=== PATIENT | male | born 1970 | race Caucasian/White ===

== ENCOUNTER 2016-07-17 08:44 | Emergency (ER) | payer MEDICARE ==
[~2016-07-17 08:44] MED LIST: ADVIL200 MG PO; HYDROCODONE-APA1 TAB PO; PERCOCET 10/3251 TA1 PO
== END 2016-07-17 11:24 | disposition home or self-care (01) ==
LOC: D.ER 08:44
DX: M62.838 Other muscle spasm (principal)

== ENCOUNTER 2016-10-26 10:56 | Emergency (ER) | payer MEDICARE | END 2016-10-26 12:51 | disposition home or self-care (01) | LOC: D.ER 10:56 | DX: M54.5 Low back pain (principal) ==

== ENCOUNTER 2016-11-04 10:02 | Emergency (ER) | payer MEDICARE | END 2016-11-04 11:34 | disposition home or self-care (01) | LOC: D.ER 10:02 | DX: M54.5 Low back pain (principal); M62.838 Other muscle spasm; M54.30 Sciatica, unspecified side; F17.200 Nicotine dependence, unspecified, uncomplicated ==

== ENCOUNTER 2016-12-21 09:52 | Emergency (ER) | payer MEDICARE | END 2016-12-21 11:06 | LOC: D.ER 09:52 | DX: M54.16 Radiculopathy, lumbar region (principal); F17.200 Nicotine dependence, unspecified, uncomplicated ==

== ENCOUNTER 2016-12-31 15:08 | Emergency (ER) | payer MEDICARE | END 2016-12-31 16:52 | disposition home or self-care (01) | LOC: D.ER 15:08 | DX: M54.5 Low back pain (principal) ==

== ENCOUNTER 2017-01-15 15:14 | Emergency (ER) | payer MEDICARE | END 2017-01-15 17:10 | disposition home or self-care (01) | LOC: D.ER 15:14 | DX: M54.5 Low back pain (principal); S39.012A Strain of muscle, fascia and tendon of lower back, initial encounter; X58.XXXA Exposure to other specified factors, initial encounter; Y93.89 Activity, other specified; Y92.029 Unspecified place in mobile home as the place of occurrence of the external cause ==

== ENCOUNTER 2017-01-25 10:11 | Emergency (ER) | payer MEDICARE | END 2017-01-25 11:53 | disposition home or self-care (01) | LOC: D.ER 10:11 | DX: M51.26 Other intervertebral disc displacement, lumbar region (principal) ==

== ENCOUNTER 2017-02-02 14:57 | Emergency (ER) | payer MEDICARE | END 2017-02-02 19:15 | disposition home or self-care (01) | LOC: D.ER 14:57 | DX: M54.5 Low back pain (principal) ==

== ENCOUNTER 2017-02-22 11:53 | Emergency (ER) | payer MEDICARE | END 2017-02-22 12:40 | disposition home or self-care (01) | LOC: D.ER 11:53 | DX: M54.5 Low back pain (principal) ==

== ENCOUNTER 2017-07-07 17:20 | Emergency (ER) | payer MEDICARE | END 2017-07-07 20:24 | disposition home or self-care (01) | LOC: D.ER 17:20 | DX: M25.561 Pain in right knee (principal); M25.461 Effusion, right knee; M54.5 Low back pain; W19.XXXA Unspecified fall, initial encounter; Y93.89 Activity, other specified; Y92.019 Unspecified place in single-family (private) house as the place of occurrence of the external cause; F17.200 Nicotine dependence, unspecified, uncomplicated ==

== ENCOUNTER 2017-07-21 11:19 | Emergency (ER) | payer MEDICARE | END 2017-07-21 13:50 | disposition home or self-care (01) | LOC: D.ER 11:19 | DX: M25.521 Pain in right elbow (principal) ==

== ENCOUNTER 2017-10-19 20:00 | Emergency (ER) | payer MEDICARE ==
[~2017-10-19] VITALS: Ht 180.3 cm; Wt 88.6 kg
[2017-10-19 20:28] VITALS: Ht 180.3 cm; Wt 88.6 kg
[2017-10-19] MEDS ORDERED: CYCLOBENZAPRINE10 MG PO (21:26)
[2017-10-19] MEDS ORDERED: ULTRAM50 MG PO (21:26)
[2017-10-19 21:55] VITALS: BP 146/79
== END 2017-10-19 21:54 | disposition home or self-care (01) ==
LOC: D.ER 20:00
DX: M54.5 Low back pain (principal); F17.200 Nicotine dependence, unspecified, uncomplicated

== ENCOUNTER 2018-02-05 21:44 | Emergency (ER) | payer MEDICARE ==
[~2018-02-05] VITALS: Ht 180.3 cm; Wt 81.8 kg
[~2018-02-05 21:44] MED LIST changes: +CYCLOBENZAPRINE10 MG PO; +ULTRAM50 MG PO
[2018-02-05 21:46] VITALS: Ht 180.3 cm; Wt 81.8 kg
[2018-02-05] MEDS ORDERED: BACLOFEN20 M1 PO (22:11)
[2018-02-05] MEDS ORDERED: VOLTAREN75 MG PO (22:11)
[2018-02-05 22:53] VITALS: BP 134/80
== END 2018-02-05 22:45 | disposition home or self-care (01) ==
LOC: D.ER 21:44
DX: M54.5 Low back pain (principal); G89.29 Other chronic pain; F17.200 Nicotine dependence, unspecified, uncomplicated

== ENCOUNTER 2018-05-14 16:31 | Emergency (ER) | payer MEDICARE ==
[~2018-05-14] VITALS: Ht 180.3 cm; Wt 88.6 kg
[~2018-05-14 16:31] MED LIST changes: +BACLOFEN20 M1 PO; +VOLTAREN75 MG PO
[2018-05-14 16:49] VITALS: Ht 180.3 cm; Wt 88.6 kg
[2018-05-14] MEDS ORDERED: CYCLOBENZAPRINE10 MG PO (17:17)
[2018-05-14] MEDS ORDERED: ULTRAM50 MG PO (17:17)
[2018-05-14 17:39] VITALS: BP 142/86
== END 2018-05-14 17:40 | disposition home or self-care (01) ==
LOC: D.ER 16:31
DX: M54.5 Low back pain (principal); M62.830 Muscle spasm of back

== ENCOUNTER → 2018-06-24 09:54 | Outpatient (CLI) | payer MEDICARE ==
[2018-05-14 16:49] VITALS: BMI 27.2
== END | disposition home or self-care (01) ==
LOC: D.MRI 09:54
PROVIDERS: ATTEND Orthopaedic Surgery
DX: M54.12 Radiculopathy, cervical region (principal)

== ENCOUNTER → 2018-07-19 09:55 | Outpatient (CLI) | payer MEDICARE ==
[2018-05-14 16:49] VITALS: BMI 27.2
== END | disposition home or self-care (01) ==
LOC: D.MRI 09:55
PROVIDERS: ATTEND Orthopaedic Surgery
DX: S83.241D Other tear of medial meniscus, current injury, right knee, subsequent encounter (principal)

== ENCOUNTER 2018-07-29 08:55 | Day surgery (SDC) | payer MEDICARE ==
[~2018-07-29] VITALS: Ht 180.3 cm; Wt 86.2 kg
[~2018-07-29 08:55] MED LIST changes: +HYDROCODON-ACE1 EAC7 PO
[2018-07-29 09:40] VITALS: BP 116/78; Ht 180.3 cm; Wt 86.2 kg
[2018-07-29] MEDS ORDERED: VISTARIL50 MG PO (13:42)
[2018-07-29] MEDS ORDERED: PERCOCET 10-321 EAC1 PO (13:42)
[2018-07-29] MEDS ORDERED: TORADOL10 MG PO (13:43)
--- NOTE | 2018-07-29 14:49 | NUR ---
1430-RECD TO ROOM FROM PACU. ALERT. IV PATENT. RESP WITH EASE. R KNEE DRESSING DRY AND INTACT, ELEVATED WITH ICE PACK.
--- NOTE | 2018-07-29 20:49 | OP ---
PATIENT NAME: DIANDRA GILES JR MEDICAL RECORD: [id number] :70 LOCATION:[facility] ADMISSION DATE: SURGEON: STANISLAV FORDE DO DATE OF OPERATION: 07/29/2018 PROCEDURE PERFORMED: Right knee arthroscopy with partial medial meniscectomy. PREOPERATIVE DIAGNOSIS: Right knee medial meniscal tear. POSTOPERATIVE DIAGNOSIS: Right knee medial meniscal tear. INDICATIONS: Mr. Giles is a 47-year-old male who presented to my office with right knee pain, catching and popping. He was tired and down with the pain and wants something done. MRI was done and showed a medial meniscal tear in the posterior third of the medial meniscus. He had a medial meniscal tear in the past. He said he was tired down with it and was aware of the risks including infection, bleeding, damage to nerve or vessels, need for further surgery, advancing arthritis in his knee and he signed the consent. SURGEON: Stanislav Forde DO DESCRIPTION OF PROCEDURE: The patient went to the operative suite, laid in supine position. The right lower extremity was prepped and draped in sterile fashion, given 2 grams Ancef preoperatively. A timeout was performed and everyone was agreeance with the correct side, site, patient and procedure. He was then sedated and LMA was placed. The procedure began with the knee flexed down and the medial and lateral portals were injected with 0.25% Marcaine with epinephrine, 1.5 mL in each side and a 11 blade scalpel was used to establish lateral portal. Trocar was entered in the knee, suprapatellar pouch inspected. No loose body was seen at the lateral gutter or the medial gutter. Knee was then brought from extension to flexion and the medial portal was established with an 18-gauge spinal needle an 11-blade scalpel. Probe was brought in for the medial meniscus, there is a horizontal split tear in the mid substance of the posterior middle of the medial meniscus, split right half. The meniscus was trimmed back to a stable point and then the biters and then a shaver was brought in to clean it all back to a stable point. It was probed and seen to be stable. The ACL was then inspected and probed as well as the cartilage on the medial and lateral femoral condyles and the medial tibial plateau and lateral tibial plateau was in good shape. The mid knee was in [id number]-[id number]'ed and the lateral meniscus was probed does not seem to have any tears. The patella was then viewed with the knee in flexion, tracked well in the trochlea. The water was turned off, suction was turned on. The scope was removed and the portal sites closed with 4-0 Monocryl in inverted interrupted fashion. Steri-Strips, Adaptic, 4 x 4's, ABD, Webril, Octavio wrap were then placed on the knee. ESTER hose stockinette was placed up to the knee. The patient was awakened and taken to recovery in stable condition. BLOOD LOSS: Minimal. COMPLICATIONS: None. TRANSINT:[id number] Voice Confirmation ID: [id number] DOCUMENT ID: [id number] OPERATIVE REPORT [id number] DIANDRA GILES MICHAEL D, DO at 2049 CC: [id number] DICTATION DATE: 07/29/18 1348 TANK PUMPER: 07/29/18 1855 [facility] 07/29/18 [facility] [address] [place] [address]
== END 2018-07-29 15:50 | disposition home or self-care (01) ==
LOC: D.OPS 08:55 → D.PAN 12:00 → D.OPS 12:00
PROVIDERS: ATTEND Orthopaedic Surgery
DX: S83.206A Unspecified tear of unspecified meniscus, current injury, right knee, initial encounter (principal); X58.XXXA Exposure to other specified factors, initial encounter

== ENCOUNTER 2018-08-29 17:17 | Emergency (ER) | payer MEDICARE ==
[~2018-08-29] VITALS: Ht 180.3 cm; Wt 88.6 kg
[~2018-08-29 17:17] MED LIST changes: +PERCOCET 10-321 EAC1 PO; +TORADOL10 MG PO; +VISTARIL50 MG PO
[2018-08-29 17:42] VITALS: Ht 180.3 cm; Wt 88.6 kg
[2018-08-29 20:01] VITALS: BP 120/81
== END 2018-08-29 20:02 | disposition home or self-care (01) ==
LOC: D.ER 17:17
DX: M25.561 Pain in right knee (principal)

== ENCOUNTER 2018-09-22 05:20 | Day surgery (SDC) | payer MEDICARE ==
[~2018-09-22] VITALS: Ht 180.3 cm; Wt 88.6 kg
[2018-09-22] VITALS (14 sets, daily range): BP systolic 114–144; BP diastolic 74–109; Ht 180.3 cm; Wt 88.6 kg
[2018-09-22] MEDS ORDERED: HYDROCODON-ACE1 EA10 PO (06:39)
--- NOTE | 2018-09-22 11:00 | NUR ---
RECEIVED PATIENT FROM RECOVERY. LEFT ANTERIOR NECK INCISION FROM [facility]. VSS. DROWSY BUT ORIENTED. GAVE ICE PACK. WILL CONTINUE TO MONITOR
--- NOTE | 2018-09-22 19:00 | NUR ---
ASSESSMENT COMPLETED PER FLOWSHEETS. PT A/O X4, ANTERIOR NECK INCISION INTACT, CLEAN AND DRY. SR ON CM. PT C/O NECK PAIN 4/10 ON SCALE. ICE PACK ENCOUREGED TO USE, PAIN MEDS WAS GIVEN 30MIN AGO. WILL REASSESS. CONT TO MONITOR,.
--- NOTE | 2018-09-22 20:10 | NUR ---
PT C/O THAT HAS CREIVINGS FOR SMOKING, MAKING HIM IRRITABLE AND ANXIOUS. DR REYEZ CALLED, ORDER REC'D FOR A NICOTINE PATCH.
--- NOTE | 2018-09-22 21:15 | NUR ---
PT REQUESTED TO STAND UP TO VOID. SOFT COLLAR APPLIED . PT ISAURO WELL. NO S/S OF DIZZINESS OR WEEKNESS NOTED. VSS. CONT TO MONITOR.
--- NOTE | 2018-09-22 23:00 | NUR ---
REASSESSMENT COMPLETED PER FLOWSHEETS. NO ACUTE CHANGES IN PT'S STATUS. VSS. CPOC.
[2018-09-23] VITALS (9 sets, daily range): BP systolic 113–146; BP diastolic 78–102
--- NOTE | 2018-09-23 01:10 | NUR ---
PT C/O PAIN 7/10 ON SCALE. MORPHINE 2MG IVP GIVEN PER ORDER. WILL REASSESS.
--- NOTE | 2018-09-23 01:30 | NUR ---
PT SLEEPING [facility] DISTRESS. VSS
--- NOTE | 2018-09-23 03:00 | NUR ---
REASSESSMENT COMPLETED PER FLOWSHEETS. NO ACUTE CHAGES NOTED ON PT'S STATUS. VSS
--- NOTE | 2018-09-23 08:09 | NUR ---
THE PATIENT WAS LYING IN BED AND WATCHING TELEVISION WHEN STAFF ENTERED HIS ROOM. BE DIS IN THE LOW POSITION WITH SIDERAILS X2 AND CALL LIGHT WITHIN REACH. THE PATIENT WAS EDUCATED ON THE USE OF A CALL LIGHT AND DEMONSTRATES UNDERSTANDING VIA TEACHBACK METHOD. THE PATIENT APPEARS COMFORTABLE AND HAS NO QUESTIONS OR CONCERNS AT THIS TIME.
--- NOTE | 2018-09-23 11:28 | NUR ---
THE PATIENT REMAINS IN BED WATCHING TELEVISION WITH BED IS LOW POSITION, SIDERAILS X2, AND CALL LIGHT WITHIN REACH. THE PATIENT HAS NO QUESTIONS OR CONCERNS AT THIS TIME.
--- NOTE | 2018-09-23 14:41 | NUR ---
PT DISCHARGE TEACHING PROVIDED BY PRIMARY NURSE. WRITTEN PRESCRIPTIONS PROVIDED. TRANSPORTED VIA WHEELCHAIR
--- NOTE | 2018-09-29 13:38 | OP ---
PATIENT NAME: DIANDRA JARAMILLO JR MEDICAL RECORD: [id number] :70 LOCATION:[facility] ADMISSION DATE: SURGEON: REJI COSTELLO MD DATE OF OPERATION: 09/22/2018 DATE OF SERVICE: 09/22/2018 PREOPERATIVE DIAGNOSES: Osteophyte formation and disc herniation at C5-C6 and C6-7. POSTOPERATIVE DIAGNOSES: Osteophyte formation and disc herniation at C5-C6 and C6-C7 with cervical radiculopathy. PROCEDURE: Anterior cervical discectomy and fusion at C5-C6 and C6-C7 with separate anterior cervical plate and screws, PEEK interbody cages, bone stem cell allograft at C5-C6 and C6-C7. SURGEON: Reji Costello MD DESCRIPTION AND TECHNIQUE: After induction of general endotracheal anesthesia, the patient was positioned supine on the operating table. Neck was prepped and draped in the usual sterile fashion. Fluoroscopic x-ray and Fairview dissector localized with the C5-C6 interspace. Following this, a 1:100,000 epinephrine and 1% lidocaine was infiltrated into the subcutaneous tissues. A transverse skin incision was carried out from the midline to the sternocleidomastoid muscle. The platysma was divided with sharp dissection with #15-blade. A pair of Metzenbaum scissors was used for blunt and sharp dissection medial to the carotid sheath. Following this, the C5-C6 and C6-C7 interspaces were identified with fluoroscopic x-ray and a spinal needle. The longus colli muscles were elevated from bodies of C5, C6 and C7. Osteophytes were removed anteriorly with Adson rongeurs. A self-retaining retractor was placed deep to the longus colli muscles. Douglas distracting pins were placed by the C5, C6, and C7. Each disc space was incised under distraction. The disc material was removed with curettes and pituitary rongeurs at C5-C6 and C6-C7. Under microscopic illumination, osteophytes were drilled away posteriorly. The posterior longitudinal ligament was removed with Cloward rongeurs. Next, PEEK interbody cages were placed in the disc space under distraction. Prior to this, they were filled with Negin bone stem cell allograft. A Zavation anterior cervical plate and screws was used to span the C5-C6 and C6-C7 interspaces. This was a separate plate and screws. Self-drilling screws were placed through the holes in the plate. Locking cams were tightened down over the screw heads. Meticulous hemostasis was maintained throughout the wound. Wound was irrigated with copious amounts of Ancef irrigant solution. The platysma and subdermal layer closed with interrupted 3-0 Vicryl suture. The skin was reapproximated with Steri-Strips and benzoin. A sterile dressing was applied to the wound. The patient was awakened in good condition and taken to recovery. All counts were reported as correct. Estimated blood loss was minimal. TRANSINT:[id number] Voice Confirmation ID: [id number] DOCUMENT ID: [id number] OPERATIVE REPORT [id number] DIANDRA JARAMILLO JOHN MD at 1338 CC: [id number] DICTATION DATE: 09/28/18917 PRECIPITATOR: 09/28/18 0953 [facility] 09/23/[address] [address]
== END 2018-09-23 14:43 | disposition home or self-care (01) ==
LOC: D.ICU 05:20 → D.OPS 05:20 → D.PAN 07:30 → D.ICU 10:38 → D.OPS 09-23 14:43
PROVIDERS: ATTEND Neurological Surgery
DX: M50.122 Cervical disc disorder at C5-C6 level with radiculopathy (principal); M25.78 Osteophyte, vertebrae; Z01.812 Encounter for preprocedural laboratory examination

== ENCOUNTER → 2018-11-10 14:15 | Outpatient (CLI) | payer MEDICARE ==
[2018-09-22 11:12] VITALS: BMI 27.2
[~2018-11-10 14:15] MED LIST changes: +HYDROCODON-ACE1 EA10 PO
== END | disposition home or self-care (01) ==
LOC: D.MRI 14:15
PROVIDERS: ATTEND Orthopaedic Surgery
DX: M23.303 Other meniscus derangements, unspecified medial meniscus, right knee (principal)

== ENCOUNTER → 2018-12-05 10:00 | Outpatient (CLI) | payer MEDICARE ==
[2018-09-22 11:12] VITALS: BMI 27.2
[~2018-12-05 10:00] MED LIST changes: +OXYCODONE HCL5 M1 PO
== END | disposition home or self-care (01) ==
LOC: D.MRI 10:00
PROVIDERS: ATTEND Family Medicine
DX: M54.12 Radiculopathy, cervical region (principal)

== ENCOUNTER 2018-12-23 05:15 | Day surgery (SDC) | payer MEDICARE ==
[~2018-12-23] VITALS: Ht 180.3 cm; Wt 86.2 kg
[~2018-12-23 05:15] MED LIST changes: -OXYCODONE HCL5 M1 PO
[2018-12-23 06:03] VITALS: BP 153/93; Ht 180.3 cm; Wt 86.2 kg
[2018-12-23] MEDS ORDERED: OXYCODONE HCL5 M1 PO (07:48)
--- NOTE | 2018-12-23 11:48 | OP ---
PATIENT NAME: DIANDRA JARAMILLO JR MEDICAL RECORD: [id number] :70 LOCATION:[facility] ADMISSION DATE: SURGEON: STANISLAV FORDE DO DATE OF OPERATION: 12/23/2018 PROCEDURE PERFORMED: Right knee arthroscopy with partial medial meniscectomy. PREOPERATIVE DIAGNOSIS: Right knee medial meniscal tear. POSTOPERATIVE DIAGNOSIS: Right knee medial meniscal tear. INDICATIONS: Mr. Mast is a 48-year-old male who has had right knee pain. He had a partial medial meniscectomy done several months ago, but appeared to have reinjured it. An MRI was done, showed he had continued pain and showed a midsubstance tear of the posterior horn of the medial meniscus. He had medial joint line tenderness and with positive Jayna. I told him that due to his age, he is 48, and that we can go in and trim that out and that he would be at high risk for advancing osteoarthritis, especially in the medial compartment and he was also aware of the risks of infection, bleeding, damage to nerves and vessels, need for further surgery, recurrence of the tear and blood clots and even . He signed the consent. SURGEON: Stanislav Forde DO INSTRUCTIONAL SUPERVISOR: Leroy Salgado, certified surgical school psychologist assistant. He performed closing and injecting 0.5% Marcaine with epinephrine in the portal sites at the end of the procedure. DESCRIPTION OF PROCEDURE: The patient was taken to the operative suite, laid in supine position, given general anesthetic and LMA was placed. He was given 2 grams of Ancef. The right lower extremity was then prepped and draped in sterile fashion. A timeout was performed and everyone was in agreement with the correct side, site, patient and procedure. We then began the incision over the lateral aspect of the knee for the portal with an 11-blade scalpel. The trocar then entered the knee. The suprapatellar pouch was inspected. No loose body was seen in it. The same was the medial and lateral gutters. Once the medial gutter was entered, the knee was flexed down. The medial compartment was entered. The medial portal was then established with an 18-gauge spinal needle and 11-blade scalpel. A probe was brought in seeing it was almost an oblique tear in the mid substance of the posterior horn of the medial meniscus closer to the medial about the junction of the medial and posterior horns. This was bit out with a biter and shaver back to a stable point. There was no extending of the tear at that point. This was probed again and ensured that there was no further tearing. I then inspected the ACL with the probe in good position and the lateral aspect of the knee as well, lateral compartment as the knee was figure-foured. No tear was seen in the meniscus. The cartilage was in good condition. There was no chondromalacia noted, possible grade II in the medial femoral condyle, but nothing more severe than that. The trochlea looked to be in good shape as well, as well as the underneath surface of the patella. The suction was then turned on. Water was turned off and the excess fluid was taken out of the knee. The portal sites were then closed with 4-0 Monocryl after being injected with 5 mL of 0.5% Marcaine with epinephrine, 4-0 Monocryl in inverted interrupted fashion is how they were closed with Steri-Strips, Adaptic, 4 x 4's, ABD, Webril, Octavio wrap and ESTER hose stockinette placed up to the knee. The patient was then awakened and taken to recovery in stable condition. OPERATIVE REPORT [id number] DIANDRA JARAMILLO BLOOD LOSS: Minimal. COMPLICATIONS: None. TRANSINT:[id number] Voice Confirmation ID: [id number] DOCUMENT ID: [id number] STANISLAV FORDE DO at 1148 CC: [id number] DICTATION DATE: 12/23/18 0858 MULCHER OPERATOR: 12/23/18 1109 [facility] 12/23/[address] [address]
== END 2018-12-23 10:57 | disposition home or self-care (01) ==
LOC: D.OPS 05:15 → D.PAN 12:00
PROVIDERS: ATTEND Orthopaedic Surgery
DX: S83.241A Other tear of medial meniscus, current injury, right knee, initial encounter (principal); X58.XXXA Exposure to other specified factors, initial encounter

== ENCOUNTER → 2019-09-25 21:37 | Outpatient (CLI) | payer MEDICARE ==
[2018-12-23 06:03] VITALS: BMI 26.5
[~2019-09-25 21:37] MED LIST changes: +OXYCODONE HCL5 M1 PO
== END | disposition home or self-care (01) ==
LOC: D.LABREF 21:37
PROVIDERS: ATTEND Orthopaedic Surgery
DX: M17.11 Unilateral primary osteoarthritis, right knee (principal)

== ENCOUNTER 2019-09-26 12:40 | Inpatient (IN) | payer MEDICARE ==
[~2019-09-26] VITALS: Ht 180.3 cm; Wt 86.2 kg
[2019-10-18 08:48] LABS: BILIRUBIN NEGATIVE (NEGATIVE); HEMATOCRIT 45.2 % (42.0-54.0); HEMOGLOBIN 14.7 g/dL (13.5-17.5); KETONE NEGATIVE (NEGATIVE); MCH 30.6 pg (26.0-34.0); MCHC 32.5 g/dL (31.0-37.0); MCV 94.2 fL (80.0-100.0); MEAN PLATELET VOLUME 8.9 fL (7.4-10.4); NITRITE NEGATIVE (NEGATIVE); PLATELET COUNT 283 10x3/uL (130-400); RDW 13.7 % (11.5-14.5); UROBILINOGEN NORMAL (NORMAL); WBC 5.6 10x3/uL (4.8-10.8)
[2019-10-18 08:57] LABS: CALC OSMOLALITY 273 mosm/kg (275-300); CALCIUM 9.1 mg/dL (8.5-10.1); CARBON DIOXIDE 29.5 mmol/L (21.0-32.0); CHLORIDE - SERUM 101 mmol/L (98-107); CREATININE - SERUM 1.1 mg/dL (0.6-1.3); GLUCOSE 92 mg/dL (74-106); POTASSIUM - SERUM 3.8 mmol/L (3.5-5.1); SODIUM 137 mmol/L (136-145); UREA NITROGEN 13 mg/dL (7-18); eGFR NON AFRICAN AMERICAN 75 mL/min (90-120)
[2019-10-18 09:03] LABS: APTT 30.4 SECONDS (22.8-39.4); INR 0.88 (0.85-1.17)
[2019-10-18 09:17] LABS: EOSINOPHILS 2 % (0-7); LYMPHOCYTES 57 % (15-50); MONOCYTES 5 % (2-11); NEUTROPHILS 36 % (40-80); PLATELET ESTIMATE NORMAL
[2019-10-24] VITALS (10 sets, daily range): BP systolic 121–144; BP diastolic 76–97; BMI 26.5
--- NOTE | 2019-10-24 11:42 | NUR ---
1130-monitors established. block per anesthesia. O2 sat and etco2 monitors continue.
--- NOTE | 2019-10-24 12:51 | NUR ---
CAUTERY PAD PLACED ON LEFT THIGH. LOT#[id number] EXP. 06/13/2021. PLASMA BLADE ON SETTING 6/8. AQUAMANIS SETTING ON 170.
--- NOTE | 2019-10-24 16:25 | NUR ---
MOTHER ELANA IN ROOM. PT PAIN LEVEL STILL A 10 OUT OF 10 ON THE PAIN SCALE. UNDERSTANDS I CAN GIVE HIM NO FURTHER PAIN MEDICATION AT THIS TIME. CL IN REACH. NO FURTHER NEEDS AT THIS TIME. WCTM
--- NOTE | 2019-10-24 17:22 | MORECARE ---
CASE MANAGEMENT DISCHARGE SUMMARY PATIENT: DIANDRA JARAMILLO JR UNIT: [id number] ADM DATE: 10/24/19 AGE: 49 : 70 SEX: M ROOM/BED: D.1208 AUTHOR: BILLIE ESPINOZA PHYSICIAN: REFERRING PHYSICIAN: MARIE FORDE DO DATE OF SERVICE: 10/24/19 Discharge Plan Patient Name: DIANDRA JARAMILLO Facility: [facility]:[place] : 1970 Planned Disposition: Anticipated Discharge Date: Discharge Date: Expected LOS: Initial Reviewer: [email or web address] Initial Review Date: 10/24/2019 Generated: 10/24/19 6:22 pm Patient Name: DIANDRA JARAMILLO Page [id number] at 1722 All edits/amendments must be made on the electronic document DICTATION DATE: 10/24/191721 REFINISH TECHNICIAN: LIZANDRO 10/24/191721 RPT#: [id number] DC DATE: STATUS: ADM IN [facility] [address] [place] [address] END OF REPORT
--- NOTE | 2019-10-24 17:56 | MORECARE ---
CASE MANAGEMENT DISCHARGE SUMMARY PATIENT: DIANDRA JARAMILLO JR UNIT: [id number] ADM DATE: 10/24/19 AGE: 49 : 70 SEX: M ROOM/BED: D.1208 AUTHOR: BILLIE ESPINOZA PHYSICIAN: REFERRING PHYSICIAN: MARIE FORDE DO DATE OF SERVICE: 10/24/19 Discharge Plan Patient Name: DIANDRA JARAMILLO Facility: [facility]:[place] : 1970 Planned Disposition: Anticipated Discharge Date: Discharge Date: Expected LOS: Initial Reviewer: [email or web address] Initial Review Date: 10/24/2019 Generated: 10/24/19 6:55 pm DCP- Discharge Planning Updated by [email or web address]: Dot Fuller on 10/24/19 4:[address] DME has not been delivered as yet. Patient will need CPM, RW, Ice Therapy. CM met with patient regarding DC needs/plans. Patient is in agreement to same, but somewhat drowsy. PCP: Dr. Owens. [facility] DME: cane, shower bench. Emergency contact: Thelma Epi [phone]. CM discussed HHS, OP Therapy, Rehab, SNF. Patient is too drowsy (recent pain medication) and CM will visit again. Last DP export: 10/24/19 4:22 pm Patient Name: DIANDRA JARAMILLO Page [id number] at 1756 All edits/amendments must be made on the electronic document DICTATION DATE: 10/24/191754 PROSTHETIC DENTIST: LIZANDRO 10/24/191754 RPT#: [id number] DC DATE: STATUS: ADM IN [facility] [address] [place] [address] END OF REPORT
--- NOTE | 2019-10-24 20:00 | NUR ---
ALERT RESTING IN BED CPM IN PLACE, REPORTS PAIN TO RIGHT KNEE 7, INSTRUCTED WILL GIVE PAIN MEDS AGAIN SOON POSSIABLE, SEE SHIFT ASSESSMENT, CALL LIGHT IN REACH
[2019-10-25 00:54] VITALS: BP 115/74
[2019-10-25 06:09] VITALS: BP 114/74
[2019-10-25 06:32] LABS: BASOPHILS 0.1 % (0-2); EOSINOPHILS 0.2 % (0-7); HEMATOCRIT 38.2 % (42.0-54.0); HEMOGLOBIN 12.5 g/dL (13.5-17.5); IMMATURE GRANULOCYTES 0.3 % (0-5); LYMPHOCYTES 24.5 % (15-50); MCH 30.4 pg (26.0-34.0); MCHC 32.7 g/dL (31.0-37.0); MCV 92.9 fL (80.0-100.0); MEAN PLATELET VOLUME 8.8 fL (7.4-10.4); MONOCYTES 5.8 % (2-11); NEUTROPHILS 69.1 % (40-80); PLATELET COUNT 271 10x3/uL (130-400); RBC 4.11 10x6/uL (4.20-6.10); RDW 13.8 % (11.5-14.5); WBC 9.7 10x3/uL (4.8-10.8)
[2019-10-25 07:52] LABS: CALC OSMOLALITY 268 mosm/kg (275-300); CALCIUM 7.8 mg/dL (8.5-10.1); CARBON DIOXIDE 25.3 mmol/L (21.0-32.0); CHLORIDE - SERUM 97 mmol/L (98-107); CREATININE - SERUM 1.1 mg/dL (0.6-1.3); GLUCOSE 117 mg/dL (74-106); POTASSIUM - SERUM 3.7 mmol/L (3.5-5.1); SODIUM 134 mmol/L (136-145); UREA NITROGEN 12 mg/dL (7-18); eGFR NON AFRICAN AMERICAN 75 mL/min (90-120)
--- NOTE | 2019-10-25 07:59 | OP ---
PATIENT NAME: DIANDRA GILES JR MEDICAL RECORD: [id number] :70 LOCATION:D.M3 D.1208 ADMISSION DATE:10/24/19 SURGEON: STANISLAV FORDE DO DATE OF OPERATION: 10/24/2019 PROCEDURE PERFORMED: Right total knee arthroplasty. PREOPERATIVE DIAGNOSIS: Right knee osteoarthritis. POSTOPERATIVE DIAGNOSIS: Right knee osteoarthritis. INDICATIONS: Mr. Giles is a 49-year-old male, well known to me, who has had 2 medial partial meniscectomies through knee scope. He did have some grade III chondromalacia on the scope. He said he has never gotten pain relief since and he feels that his knee has gotten worse so it is affecting his activities of daily living and he is tired of dealing with it and wants something done surgically. I informed him that he is really young for a total knee but he persisted and insisted that he have a total knee and that it would help him to be able to play with his child and function normally. I informed him of the risks of that including infection, bleeding, damage to nerves or vessels, need for further surgery especially due to his young age, blood clots, failure of implants and even . He signed the consent. SURGEON: Stanislav Forde DO DESCRIPTION OF PROCEDURE: The patient was taken to the operative suite. After given a block by anesthesia in the preoperative area, laid in the supine position, given general anesthetic and LMA was placed. The patient was given 2 grams Ancef, 80 mg of gentamicin preoperatively and a gram of TXA. The right lower extremity was then prepped and draped in sterile fashion. A timeout was performed and everyone was in agreement with correct side, site and procedure. I then began by marking out the incision in the anterior knee, covered in Ioban. I made an incision down to the capsule. I used a fresh 10 blade to do a medial parapatellar approach. I then removed part of the fat pad, then milled down the patella and then exposed the femur and drilled into the intramedullary canal and cut the distal femur after the intramedullary guide. I then exposed the proximal tibia and cut it off a guide and removed the menisci, put the 10 extension block, it fit well and flexed at the knee and sized the femur to be 70. I used the 4-in-1 cutting block at that time to cut the femur, put the trial implant on and then put in a tibia with a 10 poly, I floated into place and ranged and marked the rotation. Then I removed that. The patella was drilled as well as the leg holes on the femur and then exposed the tibia and reamed and punched and put extra holes in the tibia first and then preparation and then cement was mixed. I then put in the tibia and on the implant, impacted it in place, removed the excess cement, impacted on the femur, put a 10 poly between and brought the knee to extension, we irrigated off the patella, put in cement on the patella and the holes and then on the implant and screws, did not remove the excess cement. We put a 10% povidone iodine with 500 mL normal saline solution in the knee and let it sit for 3 minutes while the cement dried, then irrigated that out with 2 liter of normal saline. We then trialed the 10, fit very well and had good medial and lateral stability in flexion and extension and put in a 10 poly and locked it into place. I then put in Shala and vancomycin and tobramycin powder after irrigating one more time and then closed the capsule with #1 Pops in a [id number] fashion. This is done by myself, Naima Alvarado and Cornell Mcnamara. Cornell is a certified surgical student and OPERATIVE REPORT [id number] DIANDRA GILES was certified surgical tech. We then closed the skin with 2-0 Vicryl in inverted fashion and put a Zip line on the knee, dressed with Adaptic, 4 x 4s, ABD, Webril, Octavio wrap, ESTER stocking for the knee. He was then awakened and taken to recovery in stable condition. Blood loss approximately 250 mL. COMPLICATIONS: None. TRANSINT:[id number] Voice Confirmation ID: [id number] DOCUMENT ID: [id number] STANISLAV FORDE DO at 0759 CC: [id number] DICTATION DATE: 10/24/19 1343 TEST EXAMINER: 10/24/19 5841 ADM IN [facility] [address] [place] [id number]
[2019-10-25 08:16] VITALS: BP 133/68
[2019-10-25 11:47] VITALS: BP 120/75
[2019-10-25 13:20] VITALS: Ht 180.3 cm; Wt 86.2 kg
[2019-10-25 15:36] VITALS: BP 144/87
--- NOTE | 2019-10-25 18:15 | NUR ---
PATIENT RECIEVED PAIN MEDS AND CPM PLACED. IV INTACT. NO COMPLAINTS AT THIS TIME CALL LIGHT WITHIN REACH.
--- NOTE | 2019-10-25 19:15 | NUR ---
ALERT RESTING IN BED WITH CPM IN USE, C/O PAIN TO RIGHT KNEE, WANTING CPM REMOVED STATES I JUST CANT TAKE IT ANYMORE, CPM REMOVED AT THIS TIME, WILL GIVE TORDOL FOR PAIN NOT RELIEVED BY OXYCODONE, SEE SHIFT ASSESSMENT, CALL LIGHT IN REACH
[2019-10-25 20:00] VITALS: BP 146/89
[2019-10-26 04:00] VITALS: BP 136/92
[2019-10-26 07:51] LABS: HEMATOCRIT 38.9 % (42.0-54.0); HEMOGLOBIN 12.8 g/dL (13.5-17.5); LYMPHOCYTES 27.3 % (15-50); MCH 30.4 pg (26.0-34.0); MCHC 32.9 g/dL (31.0-37.0); MCV 92.4 fL (80.0-100.0); NEUTROPHILS 63.9 % (40-80); PLATELET COUNT 257 10x3/uL (130-400); RBC 4.21 10x6/uL (4.20-6.10); RDW 13.4 % (11.5-14.5)
[2019-10-26 07:52] LABS: WBC 7.2 10x3/uL (4.8-10.8)
[2019-10-26 07:56] VITALS: BP 146/94
[2019-10-26 07:57] LABS: CALC OSMOLALITY 268 mosm/kg (275-300); CALCIUM 8.4 mg/dL (8.5-10.1); CHLORIDE - SERUM 99 mmol/L (98-107); GLUCOSE 104 mg/dL (74-106); SODIUM 135 mmol/L (136-145); UREA NITROGEN 9 mg/dL (7-18); eGFR NON AFRICAN AMERICAN 84 mL/min (90-120)
[2019-10-26 08:03] LABS: POTASSIUM - SERUM 4.3 mmol/L (3.5-5.1)
--- NOTE | 2019-10-26 08:17 | NUR ---
PT ALERT X 4. BREATH SOUNDS CLEAR BILAT, 2L O2 PER NC. IV TO RIGHT FOREARM PATENT, DRESSING CDI. [place] IN PLACE. PREOP MEDICATIONS GIVEN PER ORDERS. BED LOW, CALL LIGHT IN REACH. NO OTHER NEEDS AT THIS TIME.
--- NOTE | 2019-10-26 08:20 | NUR ---
PT ALERT X 4. BREATH SOUNDS CLEAR BILAT. IV TO RIGHT FOREARM PATENT, DRESSING CDI. DRESSING TO RIGHT KNEE CDI. BED LOW, CALL LIGHT IN REACH. NO OTHER NEEDS AT THIS TIME.
[2019-10-26] MEDS ORDERED: KEFLEX500 MG PO (08:21)
[2019-10-26] MEDS ORDERED: oxyCODONE IR PO (08:21)
[2019-10-26] MEDS ORDERED: ELIQUIS2.5 MG PO (08:21)
[2019-10-26] MEDS ORDERED: VISTARIL50 MG PO (08:21)
[2019-10-26 11:56] VITALS: BP 137/80
--- NOTE | 2019-10-26 13:45 | MORECARE ---
CASE MANAGEMENT DISCHARGE SUMMARY PATIENT: DIANDRA JARAMILLO JR UNIT: [id number] ADM DATE: 10/24/19 AGE: 49 : 70 SEX: M ROOM/BED: D.1208 AUTHOR: BILLIE ESPINOZA PHYSICIAN: REFERRING PHYSICIAN: MARIE FORDE DO DATE OF SERVICE: 10/26/19 Discharge Plan Patient Name: DIANDRA JARAMILLO Facility: [facility]:[place] : 1970 Planned Disposition: Home Anticipated Discharge Date: 10/26/19 Discharge Date: Expected LOS: 2 Initial Reviewer: [email or web address] Initial Review Date: 10/26/2019 Generated: 10/26/19 2:44 pm DCP- Discharge Planning Updated by [email or web address]: Dot Fuller on 10/24/19 4:[address] DME has not been delivered as yet. Patient will need CPM, RW, Ice Therapy. CM met with patient regarding DC needs/plans. Patient is in agreement to same, but somewhat drowsy. PCP: Dr. Owens. Pharmacy: [facility]. DME: cane, shower bench. Emergency contact: Thelma Chowdary [phone]. CM discussed HHS, OP Therapy, Rehab, SNF. Patient is too drowsy (recent pain medication) and CM will visit again. DCPIA - Discharge Planning Initial Assessment Updated by [email or web address]: Racheal Benites on 10/26/19 1:43 pm * Is the patient Alert and Oriented? Yes * How many steps to enter\exit or inside your home? * PCP Dr. Owens * Pharmacy [facility] * Preadmission Environment Home with Family * ADLs Independent * Equipment Cane Shower Chair * List name and contact numbers for known caregivers / representatives who currently or will assist patient after discharge: Inez Chowdary, mother, * Verbal permission to speak to the caregivers and representatives has been obtained from the patient. Yes * Community resources currently utilized None * Additional services required to return to the preadmission environment? Yes * Can the patient safely return to the preadmission environment? Yes * Has this patient been hospitalized within the prior 30 days at any hospital? No Last DP export: 10/24/19 4:56 pm Patient Name: DIANDRA JARAMILLO Page [phone] at 1345 All edits/amendments must be made on the electronic document DICTATION DATE: 10/26/19 1344 REGISTERED MASSAGE THERAPIST: LIZANDRO 10/26/19 1344 RPT#: [id number] DC DATE: STATUS: ADM IN [facility] [address] [place] [address] END OF REPORT
--- NOTE | 2019-10-26 13:52 | MORECARE ---
CASE MANAGEMENT DISCHARGE SUMMARY PATIENT: DIANDRA JARAMILLO JR UNIT: [id number] ADM DATE: 10/24/19 AGE: 49 : 70 SEX: M ROOM/BED: D.1208 AUTHOR: OLGA,DOC PHYSICIAN: REFERRING PHYSICIAN: MARIE FORDE DO DATE OF SERVICE: 10/26/19 Discharge Plan Patient Name: DIANDRA JARAMILLO Facility: [facility]:[place] : 1970 Planned Disposition: Home Anticipated Discharge Date: 10/26/19 Discharge Date: Expected LOS: 2 Initial Reviewer: [email or web address] Initial Review Date: 10/26/2019 Generated: 10/26/19 2:52 pm Comments DCP- Discharge Planning Updated by [email or web address]: Racheal Benites on 10/26/19 12:[address] Patient Name: DIANDRA JARAMILLO Admission Status: Elective Accout number: [id number] Admission Date: 10-24-2019 : 1970 Admission Diagnosis:UNILATERAL PRIMARY OSTEOARTHRITIS, RIGHT KNEE Attending: MARIE OFRDE Current LOS: 2 Anticipated DC Date: 10-26-2019 Planned Disposition: Home Primary Insurance: MEDICARE A & B Discharge Planning Comments: DONNA met with patient to discuss discharge planning / needs. Patient states his discharge plan is to return to home where he lives with his and 3 kids. States he wants to go to outpatient therapy at [facility] in [place]. Signed DEREK for [facility] and [facility]ARTINE[facility] Rushing. Patient states his mom will transport him home upon discharge. States home environment is safe. Denies any other discharge planning needs at this time. CM explained and patient signed DC IMM. Copies on chart. DONNA spoke with Shoaib at [email or web address]. Shoaib states he is on his way from [place] with patient's walker. He will deliver it to the hospital prior to patient leaving hospital. States he will deliver CPM and Ice machine to patient's home this afternoon. CM called and spoke with Lisa at [facility] about referral. Patient scheduled for therapy Wednesday at 11:00. DONNA spoke with Dr. Forde about late therapy appointment d/t holiday Wednesday. Dr. Forde stated Wednesday would be fine. CM faxed records and order to Lisa as requested. CM instructed patient on appointment date and time. CM gave patient copy of therapy orders with appointment time. Patient verbalized understanding and satisfaction with discharge plan. CM will continue to follow and assist as needed with discharge planning / needs. Gut Dropper: Racheal Benites DCP- Discharge Planning Updated by [email or web address]: Dot Bustamantelroy on 10/24/19 4:[address] DME has not been delivered as yet. Patient will need CPM, RW, Ice Therapy. CM met with patient regarding DC needs/plans. Patient is in agreement to same, but somewhat drowsy. PCP: Dr. Owens. [facility]. DME: cane, shower bench. Emergency contact: Thelma Chowdary [phone]. CM discussed HHS, OP Therapy, Rehab, SNF. Patient is too drowsy (recent pain medication) and CM will visit again. DCPIA - Discharge Planning Initial Assessment Updated by [email or web address]: Racheal Benites on 10/26/19 1:43 pm * Is the patient Alert and Oriented? Yes * How many steps to enter\exit or inside your home? * PCP Dr. Owens * Pharmacy [facility] * Preadmission Environment Home with Family * ADLs Independent * Equipment Cane Shower Chair * List name and contact numbers for known caregivers / representatives who currently or will assist patient after discharge: Inez Chowdary, , * Verbal permission to speak to the caregivers and representatives has been obtained from the patient. Yes * Community resources currently utilized None * Additional services required to return to the preadmission environment? Yes * Can the patient safely return to the preadmission environment? Yes * Has this patient been hospitalized within the prior 30 days at any hospital? No Coverage Notice Reviewer: [id number] Marleny Benites Notice Issued Date-Time: 10/26/2019 12:33 Notice Type: Patient Choice Letter Notice Delivered To: Patient Relationship to Patient: Self Carpet Installer Name: Delivery Method: HAND - Hand Delivered Karla Days: Prior Verbal Notification: Recipient Understood Notice: Yes Recipient Signature: Yes Med Rec Note Co-signed by Attending: Coverage Notice Comment: [facility] Reviewer: [id number] Marleny Benites Notice Issued Date-Time: 10/26/2019 12:33 Notice Type: IM Discharge Notice Notice Delivered To: Patient Relationship to Patient: Self Carpet Installer Name: Delivery Method: HAND - Hand Delivered Karla Days: Prior Verbal Notification: Recipient Understood Notice: Yes Recipient Signature: Yes Med Rec Note Co-signed by Attending: Coverage Notice Comment: Last DP export: 10/26/19 12:45 pm Patient Name: DIANDRA JARAMILLO Page [id number] at 1352 All edits/amendments must be made on the electronic document DICTATION DATE: 10/26/19 1352 SPIRAL WINDER: LIZANDRO 10/26/19 1352 RPT#: [id number] DC DATE: STATUS: ADM IN [facility] [address] [place] [address] END OF REPORT
--- NOTE | 2019-10-26 14:06 | MORECARE ---
CASE MANAGEMENT DISCHARGE SUMMARY PATIENT: DIANDRA JARAMILLO JR UNIT: [id number] ADM DATE: 10/24/19 AGE: 49 : 70 SEX: M ROOM/BED: D.1208 AUTHOR: OLGA,DOC PHYSICIAN: REFERRING PHYSICIAN: MARIE FORDE DO DATE OF SERVICE: 10/26/19 Discharge Plan Patient Name: DIANDRA JARAMILLO Facility: [facility]:[place] : 1970 Planned Disposition: Home Anticipated Discharge Date: 10/26/19 Discharge Date: Expected LOS: 2 Initial Reviewer: [email or web address] Initial Review Date: 10/26/2019 Generated: 10/26/19 3:06 pm Comments DCP- Discharge Planning Updated by [email or web address]: Racheal Benites on 10/26/19 12:[address] Patient Name: DIANDRA JARAMILLO Admission Status: Elective Accout number: [id number] Admission Date: 10-24-2019 : 1970 Admission Diagnosis:UNILATERAL PRIMARY OSTEOARTHRITIS, RIGHT KNEE Attending: MARIE FORDE Current LOS: 2 Anticipated DC Date: 10-26-2019 Planned Disposition: Home Primary Insurance: MEDICARE A & B Discharge Planning Comments: DONNA met with patient to discuss discharge planning / needs. Patient states his discharge plan is to return to home where he lives with his and 3 kids. States he wants to go to outpatient therapy at [facility] in [place]. Signed DEREK for [facility] and [facility] Rushing. Patient states his mom will transport him home upon discharge. States home environment is safe. Denies any other discharge planning needs at this time. CM explained and patient signed DC IMM. Copies on chart. DONNA spoke with Shoaib at [employer]. Shoaib states he is on his way from [place] with patient's walker. He will deliver it to the hospital prior to patient leaving hospital. States he will deliver CPM and Ice machine to patient's home this afternoon. CM called and spoke with Lisa at [facility] about referral. Patient scheduled for therapy Wednesday at 11:00. DONNA spoke with Dr. Forde about late therapy appointment d/t holiday Wednesday. Dr. Forde stated Wednesday would be fine. CM faxed records and order to Lisa as requested. CM instructed patient on appointment date and time. CM gave patient copy of therapy orders with appointment time. Patient verbalized understanding and satisfaction with discharge plan. CM will continue to follow and assist as needed with discharge planning / needs. Contracting Executive: Racheal Benites DCP- Discharge Planning Updated by [id number]: Dot Bustamantelroy on 10/24/19 4:[address] DME has not been delivered as yet. Patient will need CPM, RW, Ice Therapy. CM met with patient regarding DC needs/plans. Patient is in agreement to same, but somewhat drowsy. PCP: Dr. Owens. [facility]acy[facility]. DME: cane, shower bench. Emergency contact: Thelma Chowdary [phone]. CM discussed HHS, OP Therapy, Rehab, SNF. Patient is too drowsy (recent pain medication) and CM will visit again. DCPIA - Discharge Planning Initial Assessment Updated by [email or web address]: Racheal Benites on 10/26/19 1:43 pm * Is the patient Alert and Oriented? Yes * How many steps to enter\exit or inside your home? * PCP Dr. Owens * [facility] * Preadmission Environment Home with Family * ADLs Independent * Equipment Cane Shower Chair * List name and contact numbers for known caregivers / representatives who currently or will assist patient after discharge: Inez Chowdary, , * Verbal permission to speak to the caregivers and representatives has been obtained from the patient. Yes * Community resources currently utilized None * Additional services required to return to the preadmission environment? Yes * Can the patient safely return to the preadmission environment? Yes * Has this patient been hospitalized within the prior 30 days at any hospital? No External Providers External Provider: OTHER-OTHER Next Contact Date: Service Request Date: Service Type: Resolution: Reviewer: Comments: Coverage Notice Reviewer: [id number] - Racheal Benites Notice Issued Date-Time: 10/26/2019 12:33 Notice Type: Patient Choice Letter Notice Delivered To: Patient Relationship to Patient: Self Manager Medicaid Name: Delivery Method: HAND - Hand Delivered Karla Days: Prior Verbal Notification: Recipient Understood Notice: Yes Recipient Signature: Yes Med Rec Note Co-signed by Attending: Coverage Notice Comment: [facility] Reviewer: [id number] Marleny Benites Notice Issued Date-Time: 10/26/2019 12:33 Notice Type: IM Discharge Notice Notice Delivered To: Patient Relationship to Patient: Self Manager Medicaid Name: Delivery Method: HAND - Hand Delivered Karla Days: Prior Verbal Notification: Recipient Understood Notice: Yes Recipient Signature: Yes Med Rec Note Co-signed by Attending: Coverage Notice Comment: Last DP export: 10/26/19 12:52 pm Patient Name: DIANDRA JARAMILLO Page [id number] at 1406 All edits/amendments must be made on the electronic document DICTATION DATE: 10/26/19 1406 PLATE SHOP HELPER: LIZANDRO 10/26/19 1406 RPT#: [id number] DC DATE: STATUS: ADM IN [facility] [address] [place] [address] END OF REPORT
--- NOTE | 2019-10-26 14:36 | NUR ---
DISCHARGE PAPERWORK SIGNED, ALL QUESTIONS ANSWERED. IV TO RIGHT FOREARM DC'D, TIP INTACT. ESCORTED OUT VIA WHEELCHAIR.
== END 2019-10-26 16:17 | disposition home or self-care (01) | DRG 470 ==
LOC: D.SDCHOLD 10-18 10:00 → D.M3 10-24 09:25 → D.SDCHOLD 10-24 10:00 → D.M3 10-24 14:33 → D.SDCHOLD 10-24 15:15 → D.M3 10-26 16:17
PROVIDERS: Family Medicine; ADMIT Orthopaedic Surgery; ATTEND Orthopaedic Surgery
PROC: 0SRC0J9 Replacement of Right Knee Joint with Synthetic Substitute, Cemented, Open Approach (ICD-10-PCS; principal; 2019-10-24 11:30)
DX: M17.11 Unilateral primary osteoarthritis, right knee (principal); F41.9 Anxiety disorder, unspecified; K21.9 Gastro-esophageal reflux disease without esophagitis; G89.29 Other chronic pain; M54.9 Dorsalgia, unspecified